=== PATIENT | female | born 1960 | race Caucasian/White ===

== ENCOUNTER → 2018-08-15 | Outpatient (REF) | payer OTHER | LOC: M LAB LCGH 17:22 | PROVIDERS: ATTEND Nurse Practitioner Adult Health | DX: Z12.4 Encounter for screening for malignant neoplasm of cervix (principal) ==

== ENCOUNTER → 2020-12-08 | Outpatient (REF) | payer OTHER | LOC: M SFHCWAGY 18:18 | PROVIDERS: ATTEND Nurse Practitioner Women's Health | DX: Z11.51 Encounter for screening for human papillomavirus (HPV) (principal) | CPT/HCPCS: 87624; G0123 ==

== ENCOUNTER → 2020-12-30 | Outpatient (CLI) | payer OTHER ==
[2020-12-30 15:41] LABS: CREATININE FOR GFR 1.42 MG/DL (0.55-1.30); GLOMERULAR FILTRATION RATE 40.2 (>45)
== END ==
LOC: M PLALAB 13:54
PROVIDERS: ATTEND Nurse Practitioner Women's Health
DX: Z01.812 Encounter for preprocedural laboratory examination (principal)

== ENCOUNTER → 2021-01-03 | Outpatient (CLI) | payer OTHER ==
[~2021-01-03] MED LIST: PROHANCE 279.3MG/ML 15ML VIAL As Ordered ONE
--- NOTE | 2021-01-04 08:20 | REP ---
INDICATION: PELVIC FULLNESS. COMPARISON: No comparison pelvic imaging. EGFR 40 mL/minute. TECHNIQUE: Axial, coronal, and sagittal imaging planes utilized. T1 and T2 weighted scans are included with without fat saturation. Diffusion-weighted scans are included. T1 weighted scans are acquired before and after the intravenous administration of 9 mL of ProHance. Half dose gadolinium enhancement protocol. FINDINGS: There is diverticulosis of the sigmoid colon. No free fluid is seen. Cortical and medullary bone signal intensity are normal. No ovarian mass or cyst is seen on either side. Uterine dimensions are normal there is a posterior fundal uterine myometrial heterogeneous mass measuring 6.9 x 4.1 x 4.4 cm. 2.0 x 1.7 by 1.8 cm. This consistent with a degenerated uterine leiomyoma. This appears to be calcified. Junctional zone and endometrium are unremarkable. No pelvic mass or adenopathy is seen. Urinary bladder appears intact. Postcontrast images show no suspicious or significant gadolinium enhancement. IMPRESSION: Findings consistent with a small calcified fundal uterine leiomyoma in the myometrium. Sigmoid colon diverticulosis. Otherwise negative <Electronically signed by Torrey Alcantar > 01/04/21 [id number]
== END ==
LOC: M RAD 17:41
PROVIDERS: ATTEND Nurse Practitioner Women's Health
DX: D25.9 Leiomyoma of uterus, unspecified (principal)

== ENCOUNTER → 2024-01-16 | Outpatient (REF) | payer OTHER ==
[2024-01-16 19:20] LABS: ALBUMIN 3.4 G/DL (3.2-5.2); BILIRUBIN,DIRECT 0.2 MG/DL (<0.4); BILIRUBIN,TOTAL 0.6 MG/DL (0.3-1.2); TOTAL PROTEIN 6.7 G/DL (5.7-8.2)
== END ==
LOC: M LAB REF 17:42
PROVIDERS: ATTEND Internal Medicine Nephrology
DX: I12.9 Hypertensive chronic kidney disease with stage 1 through stage 4 chronic kidney disease, or unspecified chronic kidney disease (principal); R94.5 Abnormal results of liver function studies

== ENCOUNTER → 2025-04-19 | Outpatient (REF) | payer OTHER | LOC: M SFHCDERM 17:19 | PROVIDERS: ATTEND Physician Assistant | DX: D48.5 Neoplasm of uncertain behavior of skin (principal) ==